=== PATIENT | male | born 1985 | race Caucasian/White ===

== ENCOUNTER 2023-09-20 07:25 | Observation (INO) ==
[~2023-09-20 07:25] MED LIST: Metoclopramide 5 MG/ML VIAL (10 mg) IV PRN; NS 0.45% 1000 ml BAG 1,000 ML IV SCH; Naloxone 0.4 mg VIAL 0.4 mg/ml 1 ml VIAL IV PRN; Ondansetron 4 mg VIAL 2 MG/ML 2 ml VIAL IV PRN
[2023-09-20] MEDS ORDERED: Chlorhexidine MOUTHWASH 0.12% 15 ML UDC ONE (07:39)
[2023-09-20] MEDS ORDERED: Buffered Lidocaine 1% SYRIN 1 ml ONE (07:50)
[2023-09-20] MEDS ORDERED: ceFAZolin 2 GM PREMIX 2 GM/50 ML BAG ONE (07:50)
[2023-09-20 08:04] LABS: Rapid COVID-19 Molecular Undetected (Undetected)
[2023-09-20] MEDS ORDERED: fentaNYL 250 mcg/5 ml 50 MCG/ML 5 ml VIAL (250 MCG) ONE (08:04)
[2023-09-20] MEDS ORDERED: Dexamethasone IV 4 MG/ML VIAL 1 ml VIAL ONE ×2 (08:04→10:24)
[2023-09-20] MEDS ORDERED: Lidocaine 2% PF 5 ML VIAL ONE (08:04)
[2023-09-20] MEDS ORDERED: Midazolam 2 mg/2 ml VIAL 1 mg/ml 2 ml VIAL (2 mg) ONE (08:04)
[2023-09-20] MEDS ORDERED: Propofol 10 MG/ML 20 ML BTL ONE (08:04)
[2023-09-20] MEDS ORDERED: Ondansetron 4 mg VIAL 2 MG/ML 2 ml VIAL ONE (08:04)
[2023-09-20] MEDS ORDERED: Phenylephrine IV 10 MG/ML 1 ml VIAL ONE (08:11)
[2023-09-20] MEDS ORDERED: Rocuronium 50 mg VIAL 10 mg/ml 5 ml VIAL (50 mg) ONE ×2 (08:46→10:37)
[2023-09-20] MEDS ORDERED: ceFAZolin VIAL VIAL ONE (09:40)
[2023-09-20] MEDS ORDERED: Gelfoam Sponge SIZE 100 SPONGE ONE (09:40)
[2023-09-20] MEDS ORDERED: Lidocaine 1% w EPI 1:100,000 MDV 20 ML VIAL ONE (09:40)
[2023-09-20] MEDS ORDERED: Thrombin 5,000 UNITS 1 APPLIC KIT - topical use - TOPICAL ONE (09:40)
[2023-09-20] MEDS ORDERED: Phenylephrine 40 mcg/mL 10mL (400mcg) SYRINGE ONE (10:16)
[2023-09-20] MEDS ORDERED: Magnesium Hydroxide LIQ 30 ML UDC PO PRN (11:56)
[2023-09-20] MEDS ORDERED: Calcium Carb (TUMS) 500 mg CHEW TAB PO PRN (11:56)
[2023-09-20] MEDS ORDERED: Senna TAB 8.6 mg TAB PO PRN (11:56)
[2023-09-20] MEDS ORDERED: Ondansetron 4 mg VIAL 2 MG/ML 2 ml VIAL IV PRN (11:56)
[2023-09-20] MEDS ORDERED: Dextran 70/Hypromellose Tears Eye Drops 15 ml BTL (for Artificials Tears) BOTH EYES PRN (11:56)
[2023-09-20] MEDS ORDERED: Phenol 1.4% Throat Spray BTL MT PRN (11:56)
[2023-09-20] MEDS ORDERED: Morphine 2 MG/ML SYRINGE IV PRN (11:59)
[2023-09-20] MEDS ORDERED: fentaNYL 100 mcg/2 ml 50 MCG/ML VIAL ONE (11:59)
[2023-09-20] MEDS: fentaNYL 100 mcg/2 ml 50 MCG/ML VIAL IV PRN (12:03)
[2023-09-20] MEDS: Lactated Ringers 1000 ml BAG 1,000 ML IV SCH ×2 (13:18→13:43)
[2023-09-20] MEDS: Acetaminophen IV 1 GM/100ML 1,000 MG/100 ML BAG IV ONE (13:42)
[2023-09-20] MEDS: Buffered Lidocaine 1% SYRIN 1 ml INTRADERM ONE (13:42)
[2023-09-20] MEDS: Scopolamine 1 mg/72hr PATCH TRANSDERM ONE (13:43)
[2023-09-20] MEDS: Benzocaine/Menthol LOZ MT PRN (15:07)
[2023-09-21 05:31] VITALS: BP 111/71
[2023-09-21] MEDS ORDERED: HYDROXYZINE HCL PO SCH (09:00)
== END 2023-09-21 11:00 | disposition home or self-care (01) ==
LOC: AA 07:25 → INTOOBSV 07:25 → SSU 13:15
PROVIDERS: ADMIT Neurological Surgery; ATTEND Neurological Surgery